=== PATIENT | male | born 1945 | race Hispanic/Latino ===

== ENCOUNTER → 2018-12-03 | Outpatient (CLI) | payer MEDICARE ==
[~2018-12-03] MED LIST: AMLODIPINE BESY10 MG PO; ASPIR 8181 MG PO; LIPITOR20 MG PO
--- NOTE | 2018-12-03 17:54 | Diagnostic Imaging Report ---
EXAM: Renal Ultrasound INDICATION: CYST KIDNEY COMPARISON: None . Correlation with reports of CT abdomen dated 05/22/2016; images itself and not available in PACS. TECHNIQUE: Transverse and longitudinal images of the kidneys and bladder were obtained. FINDINGS: Right Kidney: Absent. Left Kidney: Length: 13.4 cm, mildly enlarged, likely compensatory hypertrophy. Appearance: Increased echogenicity. Collecting system: No hydronephrosis Stones: None Cyst/Mass: Mildly complex cyst in the lower pole measures 2.3 x 2.2 x 2.0 cm; it contains thin/incomplete septations. In measure 2.[address] examination. Bladder: Normal IMPRESSION: 1. Status post right nephrectomy. 2. 2.2 cm mildly complex left renal cyst. Signed by: Dr. Shauna Terrell M.D. on 12/03/2018 5:50 PM
== END ==
LOC: US 16:37
PROVIDERS: ATTEND Urology
DX: N28.1 Cyst of kidney, acquired (principal)
CPT/HCPCS: 76770

== ENCOUNTER 2019-06-16 11:43 | Emergency (ER) | payer MEDICARE ==
[~2019-06-16] VITALS: Ht 162.6 cm; Wt 68.0 kg
--- OUTSIDE RECORDS SUMMARY | 2019-06-16 11:45 | XMS REPORT ---
[facility] Address Unknown Phone Unavailable Care Team Providers Care Job Forwarder Name Role Phone Gianfranco MCKEON Unavailable Unavailable Problems This patient has no known problems. Allergies, Adverse Reactions, Alerts This patient has no known allergies or adverse reactions. Medications This patient has no known medications. Results Test Description Test Time Test Comments Text Results Atomic Results Result Comments RENAL RETROPERITONEAL COMP 2018-12-03 17:48:00 [place] [address] Patient Name: JAMAL GALARZA MR #: [id number] : 1945 Age/Sex: 73/M Req #: [id number] Adm Physician: Ordered by: GWEN MCKEON MD Report #: [id number] Location: Room/Bed: Procedure: [id number] US/US RENAL RETROPERITONEAL COMP Exam Date: 12/03/18 Exam Time: 1656 REPORT STATUS: Signed EXAM: Renal Ultrasound INDICATION: CYST KIDNEY COMPARISON: None . Correlation with reports of CT abdomen dated 05/22/2016; images itself and not available in PACS. TECHNIQUE: Transverse and longitudinal images of the kidneys and bladder were obtained. FINDINGS: Right Kidney: Absent. Left Kidney: Length: 13.4 cm, mildly enlarged, likely compensatory hypertrophy. Appearance: Increased echogenicity. Collecting system: No hydronephrosis Stones: None Cyst/Mass: Mildly complex cyst in the lower pole measures 2.3 x 2.2 x 2.0 cm; it contains thin/incomplete septations. In measure 2.[address] examination. Bladder: Normal IMPRESSION: 1. Status post right nephrectomy. 2. 2.2 cm mildly complex left renal cyst. Signed by: Dr. Shauna Mejias M.D. on 12/03/2018 5:50 PM Dictated By: DANIAL MEJIAS MD, MD 49 Transcribed By: JESUS on 12/03/181749 COPY TO: GWEN MCKEON MD
[2019-06-16] MEDS ORDERED: CEFAZOLIN SOD 1 GM VIAL IM STA (11:51)
[2019-06-16] MEDS ORDERED: TETANUS/DIPHTHERIA TOX ADULT 0.5 ML SYR IM ONE (12:00)
[2019-06-16] MEDS ORDERED: HYDROCODONE/APAP 5MG-325MG TAB PO ONE (12:00)
--- NOTE | 2019-06-16 12:51 | Diagnostic Imaging Report ---
EXAMINATION: FINGER LEFT INDICATION: Trauma COMPARISON: None FINDINGS: Soft tissue defect of the palmar aspect of the left thumb. No acute underlying fracture or dislocation. Alignment is anatomic. IMPRESSION: Left thumb soft tissue defect with no underlying acute osseous injury. Signed by: Wade Ivory MD on 06/16/2019 12:47 PM
[2019-06-16] MEDS ORDERED: BUPIVACAINE HCL 0.5% 10ML MPF VIAL INJ ONE (14:15)
== END 2019-06-16 15:06 | disposition home or self-care (01) ==
LOC: ER 11:43
DX: S61.112A Laceration without foreign body of left thumb with damage to nail, initial encounter (principal); W29.3XXA Contact with powered garden and outdoor hand tools and machinery, initial encounter; Y92.008 Other place in unspecified non-institutional (private) residence as the place of occurrence of the external cause
CPT/HCPCS: 64450; 73140; 90471; 90714; 99284; J0690

== ENCOUNTER 2020-06-23 18:29 | Emergency (ER) | payer MEDICARE ==
[~2020-06-23] VITALS: Ht 162.6 cm; Wt 68.0 kg
[2020-06-23] MEDS ORDERED: LIDOCAINE 1% 5ML-MPF INJ ONE (18:30)
--- NOTE | 2020-06-23 18:34 | Emergency Department Note ---
History of Present Illnes History of Present Illness Chief Complaint: Laceration History of Present Illness This is a 74 year old male presents to the ED for L index finger injury after he cut it with a table saw at 1200 today . Historian: Patient Arrival Mode: Car Onset (how long ago): hour(s) (6) Location: L index finger Radiation: Reports extremity Severity: mild Onset quality: sudden Duration (how long): hour(s) (12) Timing of current episode: constant Progression: unchanged Chronicity: new Context: Reports trauma/injury Relieving factors: none Exacerbating factors: none Associated symptoms: Denies denies other symptoms, Denies confusion, Denies chest pain, Denies cough, Denies diaphoresis, Denies fever/chills, Denies headaches, Denies loss of appetite, Denies malaise, Denies nausea/vomiting, Denies rash, Denies seizure, Denies shortness of breath, Denies syncope, Denies weakness, Denies other Treatments prior to arrival: none Past Medical/Family History Physician Review I have reviewed the patient's past medical and family history. Any updates have been documented here. 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 Social History Smoking Cessation: Never Smoker Alcohol Use: None Any Illegal Drug Use: No Other Last Tetanus: >5 YRS Review of Systems Review of Systems Constitutional: Reports no symptoms EENTM: Reports no symptoms Cardiovascular: Reports no symptoms Respiratory: Reports no symptoms Gastrointestinal: Reports no symptoms Genitourinary: Reports no symptoms Musculoskeletal: Reports no symptoms Integumentary: Reports no symptoms Neurological: Reports no symptoms Psychological: Reports no symptoms Endocrine: Reports no symptoms Hematological/Lymphatic: Reports no symptoms Physical Exam Related Data Allergies: Coded Allergies: No Known Allergies (Verified , 05/22/16) Vital signs reviewed: Yes Physical Exam CONSTITUTIONAL Constitutional: Present well-developed, Present well-nourished HENT HENT: Present normocephalic, Present atraumatic, Present oropharynx clear/moist, Present nose normal HENT L/R: Present left ext ear normal, Present right ext ear normal EYES Eyes: Reports PERRL, Reports conjunctivae normal NECK Neck: Present ROM normal PULMONARY Pulmonary: Present effort normal, Present breath sounds normal CARDIOVASCULAR Cardiovascular: Present regular rhythm, Present heart sounds normal, Present capillary refill normal, Present normal rate GASTROINTESTINAL Abdominal: Present soft, Present nontender, Present bowel sounds normal GENITOURINARY Genitourinary: Present exam deferred SKIN Skin: Present other (4 cm lateral aspect L index finger curvilinear/flap) MUSCULOSKELETAL Musculoskeletal: Present ROM normal NEUROLOGICAL Neurological: Present alert, Present oriented x 3, Present no gross motor or sensory deficits PSYCHOLOGICAL Psychological: Present mood/affect normal, Present judgement normal Procedures Laceration Laceration: Laceration 1 Site: hand Side: left Description: flap Depth: simple, single layer Local anesthesia: lidocaine 1% Pre-repair: wound exposed Skin layer closed with: other (prolene) Size (cm): 5-0 Number of sutures: 7 Technique: simple, interrupted Assessment & Plan Medical Decision Making MDM Diff Dx : laceration , tendon injury, traumatic arthrotomy Assessment & Plan Final Impression: (1) Laceration of left index finger Depart Disposition: HOME, SELF-assisted Meds Reported Medications Aspirin (ASPIR 81) 81 Mg Tablet.dr, 81 MG PO DAILY 05/22/16 Atorvastatin Calcium (LIPITOR) 20 Mg Tablet, 20 MG PO DAILY, #30 TAB 05/22/16 Amlodipine Besylate (AMLODIPINE BESYLATE) 10 Mg Tablet, 10 MG PO DAILY, #30 TAB 05/22/16 FABBY SINCLAIR DO Jun 23, 2020 18:34
--- OUTSIDE RECORDS SUMMARY | 2020-06-24 10:17 | XMS REPORT | Continuity of Care Document ---
Author Author [facility] t Organization [facility] Address [address] [place] [address] Phone Unavailable Care Team Providers Care Client Associate Name Role Phone NO, PCP PCP Unavailable Belkis DAMIAN Attphys Unavailable Gianfranco MCKEON Attphys Unavailable Roxane Adkins Attphys Payers Payer Name Policy Type Policy Number Effective Date Expiration Date Faina stone [facility] Medicare Complete [id number] 2019 00:00:00 [facility] Problems Condition Name Condition Details Condition Category Status Onset Date Resolution Date Last Treatment Date Treating Clinician Comments Source DX: N18.1=CHRONIC KIDNEY DISEASE, STAGE DX: N18.1=CHRONIC KIDNEY DISEASE, STAGE Active 03/30/2018 [facility] Diagnosis Active 2018-03-30 00:00:00 2018-10-31 14:38:00 [facility] Abdominal pain Problem Active C [facility] Laceration of left index finger Problem Active [facility] Cyst of kidney, acquired Cyst of kidney, acquired 11/24/2018 [facility] Problem 2018-11-24 11:33:48 [facility] Acquired absence of kidney Acq uired absence of kidney 11/24/2018 [facility] Problem 2018-11-24 11:33:4 8 [facility] Chronic kidney disease, stage 3 (moderate) Chronic kidney disease, stage 3 (moderate) 05/13/2018 11/24/2018 [facility] Problem 2018-05-13 03:44:00 2018-11-24 11:33:48 2018-11-24 11:33:48 [facility] Allergies, Adverse Reactions, Alerts This patient has no known allergies or adverse reactions. Social History Social Habit Start Date Stop Date Quantity Comments Source Social History 2018-05-08 04:59:00 2018-05-08 04:59:00 [facility] Sex Assigned At 1945 00:00:00 1945 00:00:00 Male [facility] Medications Ordered Medication Name Filled Medication Name Start Date Stop Da te Current Medication? Ordering Clinician Indication Dosage Frequency Signature (SIG) Comments Components Source Amlodipine Besylate Amlodipine Besylate Yes 10 Daily [facility] Aspirin (Aspir 81) 81 Mg TABLET. Aspirin (Aspir 81) 81 Mg TABLET. Yes 81 Daily [facility] Atorvastatin Calcium (Lipitor) 20 Mg TABLET Atorvastat in Calcium (Lipitor) 20 Mg TABLET Yes 20 Daily [facility] Vital Signs Vital Name Observation Time Observation Value Comments Source Oxygen saturation by Pulse oximetry 2020-06-23 18:31:00 99 /min [facility] Weight 2020-06-23 18:31:00 150 [lb_av] [facility] BMI (Body Mass Index) 2020-06-23 18:31:00 25.7 kg/m2 [facility] Procedures This patient has no known procedures. Plan of Care Planned Activity Planned Date Details Comments Source Instructions Laceration [facility] Encounters Start Date/Time End Date/Time Encounter Type Admission Type Attendi [facility] Care Department Encounter ID Source 2020-06-23 18:55:00 2020-06-23 19:00:00 Departed Emergency Room [facility] [id number] [facility] 2018-05-07 06:32:00 2018-05-07 23:59:00 Outpatient Antione Adkins [facility] [id number] Results Test Description Test Time Test Comments Results Result Comments Source FINGER LEFT 2019-06-16 12:47:00 [facility] [address] [address] Patient Name: JAMAL GALARZA MR #: [id number] : 1945 Age/Sex: 73/M Req #: [id number] Adm Physician: Ordered by: STORM VALENTINE SOAPSTONER Report #: [id number] Location: Room/Bed: Procedure: [id number] DX/FINGER LEFT Exam Date: Exam Time: REPORT STATUS: Signed EXAMINATION: FINGER LEFT INDICATION: Trauma COMPARISON: None FINDINGS: Soft tissue defect of the palmar aspect of the left thumb. No acute underlying fracture or dislocation. Alignment is anatomic. IMPRESSION: Left thumb soft tissue defect with no underlying acute osseous injury. Signed by: Sherie Dallas MD on 06/16/2019 12:47 PM Dictated By: SHERIE DALLAS MD Transcribed By: JESUS on 06/16/191246 COPY TO: STORM VALENTINE SOAPSTONER RENAL RETROPERITONEAL COMP 2018-12-03 17:48:00 [place] [address] Patient Name: JAMAL GALARZA MR #: [id number] : 1945 Age/Sex: 73/M Req #: [id number] Adm Physician: Ordered by: GWEN MCKEON MD Report #: [id number] Location: Room/Bed: Procedure: [id number] US/US RENAL RETROPERITONEAL COMP Exam Date: 12/03/18 [...]
--- OUTSIDE RECORDS SUMMARY | 2020-06-24 10:17 | XMS REPORT | Continuity of Care Document ---
Author Author Bettina Siegel [facility] [employer] Address Unknown Phone Unavailable Care Team Providers Care Local Delivery Driver Name Role Phone [facility] [employer] Unavailable Un available Problems Problem Status Onset Date Classification Date Reported Comments Source Chronic kidney disease, stage 3 (moderate) 05/13/2018 11/24/2018 [facility] DX: N18.1=CHRONIC KIDNEY DISEASE, STAGE Active 03/30/2018 [facility] Cyst of kidney, acquired 11/24/2018 [facility] Acquired absence of kidney 11/24/2018 [facility] Medications No Data Provided for This Section Allergies, Adverse Reactions, Alerts No Known Medication Allergies Immunizations No Data Provided for This Section Results No Data Provided for This Section Pathology Reports No Data Provided for This Section Diagnostic Reports Report Value Date Source Bladder US Patient Name: JAMAL GALARZA : 1945; Age: 72 years Male MR: [id number] Study: Retroperitoneal Complete US, Bladder US 05/07/2018 7:07 AM CDT CLINICAL INDICATION: - N18.3 Chronic kidney disease, stage 3 (moderate). COMPARISON: None TECHNIQUE: Grayscale and color sonographic evaluation of the KIDNEYS AND BLADDER was performed using standard technique. FINDINGS: Previous right nephrectomy. The left kidney measures 13.2 cm in length. Anechoic 2.2 cm cyst within the mid left kidney contains a thin septation. Small left extrarenal pelvis. Normal renal echogenicity without evidence of hydronephrosis. Prevoid bladder volume measures 145 mL. Post void bladder volume measures 17 mL. The left ureteral jet is visualized. No significant bladder wall thickening or intraluminal debris. No free pelvic fluid. The visualized images of the abdominal aorta and IVC are unremarkable. The bilateral common iliac arteries were not visualized due to artifact. IMPRESSION: Status post right nephrectomy with compensatory hypertrophy of the left kidney. Minimally complex left renal cyst (2.2 cm). Bladder volume measurements as described. SL: [id number] 05/07/2018 [facility] Retroperitoneal Complete US Jason tiewenceslao Name: JAMAL GALARZA : 1945; Age: 72 years Male MR: [id number] Study: Retroperitoneal Complete US, Bladder US 05/07/2018 7:07 AM CDT CLINICAL INDICATION: - N18.3 Chronic kidney disease, stage 3 (moderate). COMPARISON: None TECHNIQUE: Grayscale and color sonographic evaluation of the KIDNEYS AND BLADDER was performed using standard technique. FINDINGS: Previous right nephrectomy. The left kidney measures 13.2 cm in length. Anechoic 2.2 cm cyst within the mid left kidney contains a thin septation. Small left extrarenal pelvis. Normal renal echogenicity without evidence of hydronephrosis. Prevoid bladder volume measures 145 mL. Post void bladder volume measures 17 mL. The left ureteral jet is visualized. No significant bladder wall thickening or intraluminal debris. No free pelvic fluid. The visualized images of the abdominal aorta and IVC are unremarkable. The bilateral common iliac arteries were not visualized due to artifact. IMPRESSION: Status post right nephrectomy with compensatory hypertrophy of the left kidney. Minimally complex left renal cyst (2.2 cm). Bladder volume measurements as described. SL: [id number] 05/07/2018 [facility] Consultation Notes No Data Provided for This Section Discharge Summaries No Data Provided for This Section History and Physicals No Data Provided for This Section Vital Signs No Data Provided for This Section Encounters Location Location Details Encounter Type Encounter Number Reason For Visit Attending Provider ADM Date DC Date Status Source [facility] Outpatient [id number] Antione Adkins 05/07/2018 05/08/2018 [facility] Procedures No Data Provided for This Section Assessment and Plan No Data Provided for This Section Plan of Care No Data Provided for This Section Social History Social History Date Source No data available for this section 05/08/2018 [facility] Family History No Data Provided for This Section Advance Directives No Data Provided for This Section Functional Status No Data Provided for This Section
== END 2020-06-23 19:00 | disposition home or self-care (01) ==
LOC: ER 18:55
DX: S61.211A Laceration without foreign body of left index finger without damage to nail, initial encounter (principal); W29.3XXA Contact with powered garden and outdoor hand tools and machinery, initial encounter; Y92.008 Other place in unspecified non-institutional (private) residence as the place of occurrence of the external cause; I10 Essential (primary) hypertension; Z85.528 Personal history of other malignant neoplasm of kidney
CPT/HCPCS: 99284

== ENCOUNTER 2020-09-11 16:41 | Emergency (ER) | payer MEDICARE ==
[~2020-09-11] VITALS: Ht 162.6 cm; Wt 68.0 kg
== END 2020-09-11 17:06 | disposition home or self-care (01) ==
LOC: ER 16:49
DX: Z48.02 Encounter for removal of sutures (principal); I10 Essential (primary) hypertension; Z85.528 Personal history of other malignant neoplasm of kidney
CPT/HCPCS: 99282; S0630

== ENCOUNTER → 2020-09-11 | Outpatient (CLI) | payer MEDICARE | LOC: CT 07:27 | PROVIDERS: ATTEND Family Medicine | DX: R10.9 Unspecified abdominal pain (principal); Z90.5 Acquired absence of kidney; Z87.442 Personal history of urinary calculi | CPT/HCPCS: 74176 ==

== ENCOUNTER → 2020-09-27 | Outpatient (CLI) | payer MEDICARE | LOC: DX 08:34 | PROVIDERS: ATTEND Family Medicine | DX: M81.0 Age-related osteoporosis without current pathological fracture (principal); R91.1 Solitary pulmonary nodule; N28.89 Other specified disorders of kidney and ureter | CPT/HCPCS: 71250; 76770; 77080 ==

== ENCOUNTER 2021-11-26 08:50 | Emergency (ER) | payer MEDICARE, OTHER ==
[~2021-11-26] VITALS: Ht 162.6 cm; Wt 68.0 kg
[2021-11-26] MEDS ORDERED: ACETAMINOPHEN 325 MG TAB PO ONE (09:30)
== END 2021-11-26 10:30 | disposition home or self-care (01) ==
LOC: ER 09:02
DX: S83.8X1A Sprain of other specified parts of right knee, initial encounter (principal); X50.1XXA Overexertion from prolonged static or awkward postures, initial encounter; Y92.89 Other specified places as the place of occurrence of the external cause; I10 Essential (primary) hypertension; Z85.528 Personal history of other malignant neoplasm of kidney
CPT/HCPCS: 99283

== ENCOUNTER → 2022-12-03 | Outpatient (CLI) | payer MEDICARE | LOC: CT 15:35 | PROVIDERS: ATTEND Family Medicine | DX: K91.5 Postcholecystectomy syndrome (principal) | CPT/HCPCS: 74176 ==